=== PATIENT | female | born 1965 | race Two or more races ===

== ENCOUNTER 2018-03-13 11:54 | Emergency (ER) | payer OTHER ==
[~2018-03-13] VITALS: Ht 152.4 cm; Wt 81.6 kg
[2018-03-13 11:59] VITALS: BP 118/72
== END 2018-03-13 14:05 | disposition home or self-care (01) ==
LOC: ER 11:54
DX: S40.011A Contusion of right shoulder, initial encounter (principal); E11.9 Type 2 diabetes mellitus without complications; E78.5 Hyperlipidemia, unspecified; I10 Essential (primary) hypertension; I25.2 Old myocardial infarction; Z98.51 Tubal ligation status; Z88.8 Allergy status to other drugs, medicaments and biological substances; W01.0XXA Fall on same level from slipping, tripping and stumbling without subsequent striking against object, initial encounter; Y93.89 Activity, other specified; Y99.8 Other external cause status; Y92.89 Other specified places as the place of occurrence of the external cause
CPT/HCPCS: 73030